=== PATIENT | male | born 1935 | race Caucasian/White ===

== ENCOUNTER 2016-07-31 09:05 | Inpatient (IN) | payer OTHER, BC ==
[~2016-07-31] VITALS: Ht 175.3 cm; Wt 88.9 kg
--- NOTE | ~2016-07-31 | HC ---
[facility] [place] [address] CONSULTATION Name: JOSE CONTRERAS [facility] Room #: 544-P [facility] IN M.R.#: [id number] Admission: 07/31/16 Attend Phys: Jossue Wilkins MD Discharge: Date of : 33 Report #: [id number] THIS REPORT FOR: //name// CC: Jossue Kruse MD DATE OF SERVICE: 07/31/2016 HISTORY OF PRESENT ILLNESS: The patient is an 80-year-old male with episode of fevers, chills, weakness and abdominal pain starting yesterday. On admission, he was noted to have significantly elevated lipase at 28,542. His liver function tests were also elevated. No previous history of pancreatitis. He denies any significant alcohol use. CT scan of the abdomen and pelvis was performed as well as the chest, which shows liver being normal. No intrahepatic bile duct dilation and the gallbladder appeared normal. Pancreas demonstrates mild fat surrounding along the body and uncinate process. The patient is n.p.o. He is on IV fluids at this time. He reports his abdominal pain is significantly improved, but he continues to have chills. He has not been febrile as of yet since admission. The patient had been taking an Omer inhibitor, but his states he discontinued this several months ago. There is a recent diagnosis of pituitary tumor, which is an adenoma, apparently. This is being followed. He does report intermittent constipation and takes lactulose on a p.r.n. basis. He states his last colonoscopy was approximately 2 years ago and reportedly negative. PAST MEDICAL HISTORY: Pituitary adenoma, recent diagnosis; history of hyponatremia and previous history of small-bowel obstruction. Coronary artery disease, status post stent times 4, history of hypertension, right ear deafness, previous right pneumothorax and previous parotid surgery. ALLERGIES: No known drug allergies. REVIEW OF SYSTEMS: As per HPI. SOCIAL HISTORY: He denies any tobacco or alcohol use. MEDICATIONS ON ADMISSION: Glucosamine chondroitin, multivitamin, nitroglycerin p.r.n., [place]-3, Pravastatin, Synthroid, CoQ10 and Tylenol p.r.n. FAMILY HISTORY: Negative for colon cancer. PHYSICAL EXAMINATION: VITAL SIGNS: Temperature this morning was 99.9, pulse 80, blood pressure 112/56, respiratory rate is 11 and O2 sat is 94%. [address] [address] CONSULTATION Name: JOSE CONTRERAS [facility] [place] Room #: 544-P [facility] IN .R.#: [id number] Admission: 07/31/16 Attend Phys: Jossue Wilkins MD Discharge: Date of : 33 Report #: [id number] GENERAL: He is alert and oriented times 3, in no acute distress. HEENT: Sclerae nonicteric. Oropharynx clear. He does have decreased hearing in his right ear. NECK: Supple, without lymphadenopathy. CARDIOVASCULAR: Regular rate and rhythm. CHEST: Clear to auscultation bilaterally. ABDOMEN: Soft. He is mildly tender to palpation in the periumbilical and midepigastrium. Nondistended. Positive bowel sounds. EXTREMITIES: No cyanosis, clubbing or edema. LABORATORY DATA: Sodium 134, potassium 4.5, chloride 100, bicarbonate 21, BUN 13, creatinine 1.2 and glucose 111. AST is 650, lipase is 28,542, total bili 0.5, alk phos 192 and ALT is 441. Protein 7.4. Albumin 4.1. Ammonia level is 20. WBC is 5.8, hemoglobin 13.4 and platelet count is 168,000. ASSESSMENT AND PLAN: Acute pancreatitis. Etiology is unclear at this point. There is no history of alcohol. Gallbladder appears normal on CT. We will obtain an ultrasound of the abdomen as this is more sensitive to rule out cholelithiasis or sludge. Continue n.p.o. and IV fluids. We will repeat liver function test and lipase tomorrow. We will also check triglyceride level. The patient has been off Omer inhibitor now for approximately 6 months apparently. With elevated liver function tests, consider the possibility of choledocholithiasis. However, his common bile duct is normal in size on CT scan. We will continue to follow closely. Thank you for allowing me to participate in his care. <ELECTRONICALLY SIGNED> By: Prince Craig MD 08/01/16 1621 1628 2327 Prince Craig MD /nt
--- NOTE | ~2016-07-31 | EKG ---
[address] [address] ELECTROCARDIOGRAM REPORT Name: JOSE CONTRERAS [facility] Room #: 544-P ADM IN M.R.#: [id number] Admission: 07/31/16 Attend Phys: Jossue Wilkins MD Discharge: Date of : 33 Report #: [id number] THIS REPORT FOR: //name// 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 Wilson : 1935 Requested By: Gareth Buck Order Number: [id number] MD: Prieto Herrera Measurements Intervals [place] Rate: 106 P: 39 LA: 193 QRS: -8 QRSD: 77 T: 21 QT: 348 QTc: 463 Interpretive Statements Sinus tachycardia Ventricular premature complex Compared to ECG 02/21/2014 10:09:58 Ventricular premature complex(es) now present Sinus rhythm no longer present T-wave abnormality no longer present Electronically Signed On 08-01-2016 12:46:46 CDT by Prieto Herrera [email or web address] <ELECTRONICALLY SIGNED> By: Prieto Herrera MD 08/01/16 1246 0936 0936 Prieto Herrera MD /EPI
[2016-07-31 09:05] VITALS: BP 111/66
[~2016-07-31 09:05] MED LIST: ACETAMINOPHEN-1 EAC3 PO; ACETAMINOPHEN-120 ML PO; ADVIL100 M2; APAP500 PO; ARTIFICIAL TEA3.5 GM; ASPIRIN325 PO; ATENOLOL 50 MG50 M1 PO; ATENOLOL 50MG T50 M1 PO; ATIVAN0.5 M1 PO; AUGMENTIN 875875 M1; CALCIUM 600 +1 EAC1 PO; CO Q-10100 MG PO; COENZYME Q10200 M2 PO; COLACE100 MG PO; FISH OIL 1,001000 M1 PO; FLECTOR PATCH1 EA TD; FLEXERIL PO; GLUCOSAMINE-CH1 EA37 PO; IRON325 PO; LEVOTHYROXINE0.05 MG PO; LUBRICANT EYE3.5 G1; MELOXICAM7.5 MG PO; METAMUCIL PAC1 UDPKT PO; METAMUCIL197.2 GM PO; MULTIVITAMINS PO; NAPROSYN250 MG PO; NEURONTIN 300300 M1 PO; NIACIN 500 MG500 M1 PO; NITROSTAT0.4 MG SL; NITROSTAT0.4 MG SUBLING; NYQUIL D COLD295 ML; OMEGA-31000 MG PO; ONDANSETRON HCL4 M2 PO; PRAVASTATIN SOD80 MG PO; PREDNISONE50 MG PO; PRILOSEC 20 MG20 MG PO; REFRESH CONTACT12 ML OPHTHALMIC; REFRESH TEARS15 ML OPHTHALMIC; ROBITUSSIN15 MG/5 M1; SODIUM CHLORIDE1 G2 PO; SYNTHROID75 MCG PO; ULTRAM 50MG TAB50 MG PO; VENTOLIN17 GM INH; VITAMIN D1000 UNI1 PO; ZESTRIL20 MG PO; ZESTRIL40 MG PO; ZOFRAN ODT4 MG PO; ZPAK PO
[2016-07-31] MEDS ORDERED: GLUCOSAMINE-CH1 EA15 PO (09:25)
[2016-07-31 09:31] LABS: ABSOLUTE NEUTROPHILS 4.5 thou/uL (1.4-8.2); BASOPHILS 0.4 % (0.0-2.0); EOSINOPHILS 0.4 % (0.0-3.0); HEMATOCRIT 38.9 % (42.0-52.0); HEMOGLOBIN 13.4 gm/dL (14.0-18.0); LYMPHOCYTES 13.5 % (24.0-44.0); MCH 31.8 pg (26.0-34.0); MCHC 34.5 g/dL (28.0-37.0); MCV 92.2 fL (80.0-100.0); MONOCYTES 8.1 % (1.0-8.0); PLATELET COUNT 168 thou/uL (150-400); POLYS 77.6 % (36.0-66.0); RBC 4.22 mil/uL (4.50-6.00); RDW 12.9 % (10.5-14.5); WBC 5.8 thou/uL (4.0-11.0)
[2016-07-31 09:34] LABS: MANUAL DIFF NO
[2016-07-31 09:40] LABS: ANION GAP 10 mmol/L (7-16); BUN 13 mg/dL (7-18); CHLORIDE 101 mmol/L (98-107); CO2 23 mmol/L (21-32); CREATININE 1.2 mg/dL (0.7-1.3); GLUCOSE 113 mg/dL (74-106); POTASSIUM 4.2 mmol/L (3.5-5.1); SODIUM 134 mmol/L (136-145)
[2016-07-31 09:57] LABS: ALKALINE PHOSPHATASE 190 U/L (46-116); SGOT 639 U/L (15-37); SGPT 438 U/L (30-65); TOTAL BILIRUBIN 0.6 mg/dL (<0.1-1.0); TOTAL PROTEIN 7.8 g/dL (6.4-8.2); TROPONIN-I < 0.04 ng/mL (<0.04-0.07)
[2016-07-31 10:25] LABS: URINE BILIRUBIN NEGATIVE (Negative); URINE BLOOD NEGATIVE (Negative); URINE COLOR YELLOW; URINE GLUCOSE-RANDOM* NEGATIVE (Negative); URINE KETONES NEGATIVE (Negative); URINE LEUKOCYTES-REFLEX NEGATIVE (Negative); URINE PROTEIN (DIPSTICK) NEGATIVE (Negative); URINE SPECIFIC GRAVITY <= 1.005 (1.003-1.035); URINE UROBILINOGEN 0.2 E.U./dl (0.2-1.0)
[2016-07-31 11:50] LABS: ABG SAMPLE TYPE ARTERIAL; BE(vivo) -2.3 mmol/L (-2 to +3); O2(CT) 17.1 mL/dL (15.0-23.0); O2Hb 95.4 % (92.0-98.0); PCO2 36.2 mmHg (35.0-45.0); PO2 83.8 mmHg (80.0-100.0); pH 7.401 (7.360-7.450); sO2 96.4 % (92.0-98.0); tCO2 23.1 mmol/L (24.0-30.0)
[2016-07-31 11:51] LABS: STICK SITE R.RADIAL
[2016-07-31 13:06] VITALS: BP 112/56
[2016-07-31 15:00] VITALS: BP 114/57
[2016-07-31 16:05] LABS: ALBUMIN 4.1 g/dL (3.4-5.0); CALCIUM 8.9 mg/dL (8.5-10.1); CREATININE 1.2 mg/dL (0.7-1.3); DIRECT BILIRUBIN 0.2 mg/dL (<0.1-0.3); POTASSIUM 4.5 mmol/L (3.5-5.1); TOTAL BILIRUBIN 0.5 mg/dL (<0.1-1.0); TOTAL PROTEIN 7.4 g/dL (6.4-8.2)
[2016-07-31 20:01] VITALS: BP 161/77
[2016-07-31 23:20] VITALS: BP 130/36
[2016-08-01 04:29] VITALS: BP 129/65
[2016-08-01 04:44] LABS: ABSOLUTE NEUTROPHILS 4.2 thou/uL (1.4-8.2); BASOPHILS 0.2 % (0.0-2.0); HEMOGLOBIN 11.5 gm/dL (14.0-18.0); LYMPHOCYTES 19.7 % (24.0-44.0); MCH 31.9 pg (26.0-34.0); MONOCYTES 10.2 % (1.0-8.0); PLATELET COUNT 141 thou/uL (150-400); POLYS 69.9 % (36.0-66.0); RBC 3.61 mil/uL (4.50-6.00); RDW 13.2 % (10.5-14.5)
[2016-08-01 04:53] LABS: MANUAL DIFF NO
[2016-08-01 07:50] VITALS: BP 154/71
[2016-08-01 10:05] LABS: ALBUMIN 3.3 g/dL (3.4-5.0); CALCIUM 7.8 mg/dL (8.5-10.1); CREATININE 1.1 mg/dL (0.7-1.3); POTASSIUM 3.8 mmol/L (3.5-5.1); TOTAL BILIRUBIN 0.3 mg/dL (<0.1-1.0); TOTAL PROTEIN 6.5 g/dL (6.4-8.2)
[2016-08-01 16:00] VITALS: BP 151/62
[2016-08-01 19:34] VITALS: BP 145/70
[2016-08-02 04:00] VITALS: BP 146/76
[2016-08-02 05:43] LABS: ALBUMIN 3.3 g/dL (3.4-5.0); CALCIUM 7.4 mg/dL (8.5-10.1); MAGNESIUM 1.8 mg/dL (1.8-2.4); POTASSIUM 3.8 mmol/L (3.5-5.1); TOTAL BILIRUBIN 0.4 mg/dL (<0.1-1.0); TOTAL PROTEIN 6.2 g/dL (6.4-8.2)
[2016-08-02 07:53] VITALS: BP 154/68
[2016-08-02 16:54] VITALS: BP 152/69
[2016-08-02 17:11] LABS: HEPATITIS C VIRUS AB <0.1 (0.0-0.9)
[2016-08-02 20:00] VITALS: BP 173/82
[2016-08-02] MEDS ORDERED: CARDIZEM CD120 MG PO (20:36)
[2016-08-02 22:52] VITALS: BP 168/74
[2016-08-03 03:52] VITALS: BP 157/64
[2016-08-03 06:08] LABS: ABSOLUTE NEUTROPHILS 1.8 thou/uL (1.4-8.2); BASOPHILS 0.4 % (0.0-2.0); EOSINOPHILS 0.4 % (0.0-3.0); HEMATOCRIT 33.2 % (42.0-52.0); HEMOGLOBIN 11.5 gm/dL (14.0-18.0); LYMPHOCYTES 36.3 % (24.0-44.0); MCH 32.1 pg (26.0-34.0); MCHC 34.7 g/dL (28.0-37.0); MCV 92.4 fL (80.0-100.0); MONOCYTES 9.8 % (1.0-8.0); PLATELET COUNT 131 thou/uL (150-400); POLYS 53.1 % (36.0-66.0); RBC 3.59 mil/uL (4.50-6.00); RDW 13.2 % (10.5-14.5); WBC 3.4 thou/uL (4.0-11.0)
[2016-08-03 06:15] LABS: MANUAL DIFF NO
[2016-08-03 06:22] LABS: MAGNESIUM 1.6 mg/dL (1.8-2.4)
[2016-08-03 07:25] VITALS: BP 156/61
[2016-08-03 12:11] LABS: ALBUMIN 3.4 g/dL (3.4-5.0); DIRECT BILIRUBIN 0.1 mg/dL (<0.1-0.3); TOTAL BILIRUBIN 0.4 mg/dL (<0.1-1.0); TOTAL PROTEIN 6.7 g/dL (6.4-8.2)
[2016-08-03 12:56] VITALS: BP 156/61
[2016-08-03 13:23] VITALS: BP 156/61
== END 2016-08-03 13:12 | disposition home or self-care (01) | DRG 438 ==
LOC: ER 09:05 → 5S 12:27 → EROBS 12:27 → 5S 13:25
PROVIDERS: Nurse Practitioner; Nurse Practitioner Acute Care; Nurse Practitioner Adult Health; Physician Assistant
DX: K85.90 Acute pancreatitis without necrosis or infection, unspecified (principal); J96.00 Acute respiratory failure, unspecified whether with hypoxia or hypercapnia; G93.40 Encephalopathy, unspecified; I10 Essential (primary) hypertension; E03.9 Hypothyroidism, unspecified; E78.5 Hyperlipidemia, unspecified; R74.0 Nonspecific elevation of levels of transaminase and lactic acid dehydrogenase [LDH]; I25.10 Atherosclerotic heart disease of native coronary artery without angina pectoris; G62.9 Polyneuropathy, unspecified; R09.02 Hypoxemia; G47.00 Insomnia, unspecified; D35.2 Benign neoplasm of pituitary gland; Z95.5 Presence of coronary angioplasty implant and graft; Z87.891 Personal history of nicotine dependence; Z79.899 Other long term (current) drug therapy
CPT/HCPCS: 10086

== ENCOUNTER 2016-12-09 15:02 | Emergency (ER) | payer OTHER, BC ==
[~2016-12-09] VITALS: Ht 175.3 cm; Wt 90.7 kg
--- NOTE | ~2016-12-09 | EKG ---
[place] [address] [place] [address] ELECTROCARDIOGRAM REPORT Name: JOSE CONTRERAS [id number] Admission: 12/09/16 Attend Phys: Discharge: Date of : 33 Report #: [id number] THIS REPORT FOR: //name// [facility] ED Test Date: 2016-12-09 Test Time: 15:34:51 Pat Name: JOSE CONTRERAS Department: Room: Gender: Insulation Hoseman: terrance : 1935 Requested By: Rajeev Calderón Order Number: [id number] MD: Prieto Herrera Measurements Intervals [place] Rate: 65 P: 16 NE: 211 QRS: -23 QRSD: 84 T: 19 QT: 401 QTc: 417 Interpretive Statements Sinus rhythm Borderline left axis deviation Low voltage, precordial leads Borderline T abnormalities, anterior leads Minimal ST elevation, lateral leads Electronically Signed On 12-09-2016 15:47:32 CDT by Prieto Herrera [email or web address] <ELECTRONICALLY SIGNED> By: Prieto Herrera MD 12/09/16 1547 1534 1534 Prieto Herrera MD /MADY
[~2016-12-09 15:02] MED LIST changes: +CARDIZEM CD120 MG PO; +GLUCOSAMINE-CH1 EA15 PO
[2016-12-09 15:45] LABS: BASOPHILS 1.2 % (0.0-2.0); EOSINOPHILS 6.2 % (0.0-3.0); HEMATOCRIT 37.9 % (42.0-52.0); HEMOGLOBIN 13.1 gm/dL (14.0-18.0); LYMPHOCYTES 25.5 % (24.0-44.0); MCH 31.2 pg (26.0-34.0); MCHC 34.5 g/dL (28.0-37.0); MCV 90.5 fL (80.0-100.0); MONOCYTES 10.3 % (1.0-8.0); PLATELET COUNT 229 thou/uL (150-400); POLYS 56.8 % (36.0-66.0); RBC 4.19 mil/uL (4.50-6.00); RDW 12.8 % (10.5-14.5); WBC 8.8 thou/uL (4.0-11.0)
[2016-12-09 15:46] LABS: MANUAL DIFF NO
[2016-12-09 15:57] LABS: ANION GAP 6 mmol/L (7-16); BUN 11 mg/dL (7-18); CALCIUM 9.4 mg/dL (8.5-10.1); CHLORIDE 89 mmol/L (98-107); CO2 27 mmol/L (21-32); CREATININE 1.1 mg/dL (0.7-1.3); GLUCOSE 145 mg/dL (74-106); POTASSIUM 4.2 mmol/L (3.5-5.1); SODIUM 122 mmol/L (136-145)
[2016-12-09 16:05] LABS: ALBUMIN 3.4 g/dL (3.4-5.0); ALKALINE PHOSPHATASE 80 U/L (46-116); SGOT 78 U/L (15-37); SGPT 38 U/L (30-65); TOTAL BILIRUBIN 0.5 mg/dL (<0.1-1.0); TOTAL PROTEIN 7.3 g/dL (6.4-8.2); TROPONIN-I < 0.04 ng/mL (<0.06)
[2016-12-09] MEDS ORDERED: ASPIRIN325 PO (16:27)
[2016-12-09] MEDS ORDERED: AXIRON30 MG/1.5 TRANSDERM (16:28)
[2016-12-09] MEDS ORDERED: FLOMAX0.4 MG PO (16:29)
[2016-12-09] MEDS ORDERED: NEURONTIN 300300 M1 PO (16:30)
[2016-12-09] MEDS ORDERED: PRAVACHOL40 MG PO (16:30)
[2016-12-09] MEDS ORDERED: PROMETH-CODEIN 65 ML PO (16:34)
[2016-12-09] MEDS ORDERED: VENTOLIN HFA 1818 GM INH (16:38)
[2016-12-09] MEDS ORDERED: ZPAK PO (16:38)
[2016-12-09] MEDS ORDERED: LEVAQUIN 500 M500 M2 PO (16:39)
== END 2016-12-09 16:50 | disposition home or self-care (01) ==
LOC: ER 15:02
PROVIDERS: Physician Assistant
DX: J18.9 Pneumonia, unspecified organism (principal); B30.9 Viral conjunctivitis, unspecified; I10 Essential (primary) hypertension; E03.9 Hypothyroidism, unspecified; E78.5 Hyperlipidemia, unspecified; G62.9 Polyneuropathy, unspecified; M19.90 Unspecified osteoarthritis, unspecified site; Z88.8 Allergy status to other drugs, medicaments and biological substances